=== PATIENT | male | born 1970 | race Caucasian/White ===

== ENCOUNTER 2017-08-25 19:46 | Inpatient (IN) | payer MEDICARE ==
[~2017-08-25] VITALS: Ht 167.6 cm; Wt 109.3 kg
[2017-08-25] MEDS ORDERED: SIMVASTATIN20 MG PO (19:57)
[2017-08-25] MEDS ORDERED: DEPAKOTE125 MG (19:57)
[2017-08-25] MEDS ORDERED: ENALAPRIL MALEA20 MG PO (19:57)
[2017-08-25] MEDS ORDERED: SEROQUEL25 MG PO (19:57)
[2017-08-25] MEDS ORDERED: SODIUM CHLORIDE 0.9% 1000ML 1,000 ML ONE ×2 (20:00→21:30)
[2017-08-25] MEDS ORDERED: MORPHINE SULFATE INJ 4 MG/ML INJ IV ONE (21:30)
[2017-08-25] MEDS ORDERED: PROMETHAZINE HCL (IM) 25 MG/ML VIAL IM ONE (21:30)
[2017-08-25] MEDS ORDERED: PIPERACILLIN/TAZOBAC 3.375 GM VIAL IV ONE (21:30)
[2017-08-25] MEDS ORDERED: SODIUM CHLORIDE 0.9% 1000ML 1,000 ML IV SCH (21:41)
[2017-08-25] MEDS ORDERED: ONDANSETRON HCL INJ 2 MG/ML VIAL IV PRN ×2 (21:45→22:30)
[2017-08-25] MEDS ORDERED: MORPHINE SULFATE 2 MG/ML SYR IV PRN (21:45)
[2017-08-25] MEDS ORDERED: PIPER-TAZ 3.375 GM / NS 50ML IV SCH ×2 (22:00→22:30)
[2017-08-25 22:38] VITALS: BP 144/86
--- OUTSIDE RECORDS SUMMARY | 2017-08-25 22:40 | XMS REPORT | Continuity of Care Document ---
Author Author [facility] Organization [facility] Address [address] [place] [address] Phone Unavailable Care Team Providers Care Plate Gauger Name Role Phone NONSTAFF PCP Unavailable Insurance Providers Guarantor Gianna Barnhart Address [address] [place] [address] Email [email or web address] Payer Medicare A & B Policy Number [id number] Subscriber's Name Gianna Barnhart Relationship 18 Self / Same As Patient Advance Directives Directive Response Recorded Date/Time Does the patient have an advance directive? No 08/25/17 8:03pm If yes, is advance directive on file with [facility]? No 08/25/17 8:06pm If not on file with [facility] will patient provide a copy? No 08/25/17 8:04pm Do you have a Directive to Physician? No 08/25/17 8:04pm Do you have a Medical Power of Sales Order Specialist? No 08/25/17 8:04pm Do you have an out of hospital Do Not Resuscitate Order? No 08/25/17 8:04pm Do you have any special needs we should be aware of? No 08/25/17 8:04pm Do you have a support person here with you today? No 08/25/17 8:04pm Did patient receive Notice of Privacy Practices? Yes 08/25/17 8:04pm Did patient receive patient rights and responsibilities? Yes 08/25/17 8:04pm Problems Medical Problem Onset Date Status Appendicitis Unknown Medications Current Home Medications Medication Dose Units Route Directions Days Qty Instructions Start Date Divalproex Sodium (Depakote) 125 Mg Tablet. Enalapril Maleate 20 Mg Tablet Quetiapine Fumarate (Seroquel) 25 Mg Tablet 25 Mg Oral Twice A Day 60 Tab Simvastatin 20 Mg Tablet 20 Mg Oral Today At 9:00PM Social History Smoking Status Start Date Stop Date Current every day smoker Hospital Discharge Instructions No hospital discharge instruction information available. Plan of Care Discharge Date 08/25/17 10:27pm Disposition ADMITTED Condition at Discharge Stable Forms Provided Work/School Excuse Prescriptions See Medication Section Functional Status No functional status information available. Allergies, Adverse Reactions, Alerts No known allergies. Immunizations No immunization information available. Vital Signs Acute Vital Signs Vital Response Date/Time Pulse Pulse Rate (adult) 105 bpm (60 - 90) 08/25/2017 10:21pm Respiratory Rate 16 bpm (12 - 24) 08/25/2017 10:21pm Blood Pressure 153/89 mm Hg 08/25/2017 10:21pm Height 5 ft 6 in 08/25/2017 7:46pm Weight 240 lb 08/25/2017 7:46pm Body Mass Index 38.7 kg/m^2 08/25/2017 7:46pm Results No relevant diagnostic test, laboratory data and/or discharge summary information available. Procedures No procedure information available. Encounters Encounter Location Arrival/Admit Date Discharge/Depart Date Attending Provider Departed Emergency Room [facility] 08/25/17 7:46pm 10:27pm DIVINE OSORIO MD
[2017-08-25] MEDS ORDERED: QUETIAPINE FUM100 MG PO (23:25)
[2017-08-25] MEDS ORDERED: DEPAKOTE ER500 MG PO ×2 (23:25)
[2017-08-25] MEDS ORDERED: QUETIAPINE FUM300 MG PO (23:25)
[2017-08-25] MEDS ORDERED: TRAZODONE HCL50 MG PO (23:25)
[2017-08-25] MEDS ORDERED: ENALAPRIL MALEATE 10 MG TAB PO SCH (23:30)
[2017-08-25] MEDS ORDERED: TRAZODONE HCL 50 MG TAB PO PRN (23:30)
[2017-08-26] VITALS (8 sets, daily range): BP systolic 105–144; BP diastolic 51–86
[2017-08-26] MEDS: SODIUM CHLORIDE 0.9% 1000ML 1,000 ML IV SCH ×4 (00:07→22:30)
[2017-08-26] MEDS: QUETIAPINE FUMARATE 100 MG TAB PO SCH ×3 (00:20→20:50)
[2017-08-26] MEDS: DEPAKOTE ER 500MG TAB(ONCE DAILY) PO SCH ×3 (00:20→20:50)
[2017-08-26] MEDS: MORPHINE SULFATE 2 MG/ML SYR IV PRN ×3 (04:12→19:20)
[2017-08-26] MEDS: PIPER-TAZ 3.375 GM 50 ML IV SCH ×3 (05:23→21:29)
[2017-08-26 07:01] LABS: HEMATOCRIT 37.6 % (38.2-49.6); HEMOGLOBIN 12.7 g/dL (14.0-18.0); MEAN CORPUSCULAR HEMOGLOBIN 31.6 pg (28-32); MEAN CORPUSCULAR HGB CONC 33.8 g/dL (31-35); MEAN CORPUSCULAR VOLUME 93.5 fL (81-99); PLATELET COUNT 115 x10e3/uL (140-360); RED BLOOD COUNT 4.02 x10e6/uL (4.3-5.7); RED CELL DISTRIBUTION WIDTH 12.9 % (11.7-14.4)
[2017-08-26 07:25] LABS: ALBUMIN 2.6 g/dL (3.5-5.0); ALBUMIN/GLOBULIN RATIO 0.9 (0.8-2.0); ANION GAP 13.7 mmol/L (8-16); CALCIUM 8.3 mg/dL (8.4-10.2); CREATININE, SERUM 1.39 mg/dL (0.72-1.25); POTASSIUM 4.7 mmol/L (3.5-5.1)
[2017-08-26] MEDS ORDERED: SIMVASTATIN 20 MG TAB PO SCH (09:00)
[2017-08-26] MEDS: ENALAPRIL MALEATE 10 MG TAB PO SCH ×2 (09:00→21:00)
[2017-08-26] MEDS ORDERED: BUPIVACAINE 0.25% 30ML SDV INJ ONE (11:46)
[2017-08-26] MEDS ORDERED: FENTANYL CITRATE/PF 100MCG/2 ML INJ ONE ×2 (14:26→18:24)
[2017-08-26] MEDS ORDERED: DEXAMETHASONE SOD PHOS INJ 4 MG/ML VIAL ONE (17:56)
[2017-08-26] MEDS ORDERED: PROPOFOL IV EMULSION 10 MG/ML 20 ML VIAL ONE (17:56)
[2017-08-26] MEDS ORDERED: ONDANSETRON HCL INJ 2 MG/ML VIAL ONE (17:56)
[2017-08-26] MEDS ORDERED: SEVOFLURANE INHAL SOLN 250 ML PEN BTL ONE (17:56)
[2017-08-26] MEDS ORDERED: LIDOCAINE HCL 2% LOCAL INJ 5 ML SDV VIAL INJ ONE (17:56)
[2017-08-26] MEDS ORDERED: GLYCOPYRROLATE INJ 1MG/ 5 ML SYR ONE (17:56)
[2017-08-26] MEDS ORDERED: NEOSTIGMINE 5 MG/5ML SYR ONE (17:56)
[2017-08-26] MEDS ORDERED: ROCURONIUM BROMIDE 10 MG/ML 5ML VIAL ONE (17:56)
[2017-08-26] MEDS ORDERED: MIDAZOLAM HCL 2 MG/2 ML VIAL ONE (18:24)
[2017-08-26] MEDS: SIMVASTATIN 40 MG TAB PO SCH (20:50)
[2017-08-27 00:39] VITALS: BP 122/72
[2017-08-27] MEDS: SODIUM CHLORIDE 0.9% 1000ML 1,000 ML IV SCH ×2 (04:24→15:57)
[2017-08-27] MEDS: MORPHINE SULFATE 2 MG/ML SYR IV PRN (04:44)
[2017-08-27] MEDS: PIPER-TAZ 3.375 GM 50 ML IV SCH ×3 (05:26→22:00)
[2017-08-27 07:29] LABS: BASOPHILS % 0.3 % (0.0-1.0); EOSINOPHILS % 0.1 % (0.0-6.0); HEMATOCRIT 35.2 % (38.2-49.6); HEMOGLOBIN 11.8 g/dL (14.0-18.0); LYMPHOCYTES # (AUTO) 1.2 (1.0-3.2); LYMPHOCYTES % 12.9 % (18.0-39.1); MEAN CORPUSCULAR HEMOGLOBIN 31.3 pg (28-32); MEAN CORPUSCULAR HGB CONC 33.5 g/dL (31-35); MEAN CORPUSCULAR VOLUME 93.4 fL (81-99); MONOCYTES % 11.3 % (4.4-11.3); NEUTROPHILS # (AUTO) 6.9 (2.1-6.9); NEUTROPHILS % 74.7 % (38.7-80.0); PLATELET COUNT 129 x10e3/uL (140-360); RED BLOOD COUNT 3.77 x10e6/uL (4.3-5.7); RED CELL DISTRIBUTION WIDTH 12.8 % (11.7-14.4)
[2017-08-27 07:41] LABS: ANION GAP 13.4 mmol/L (8-16); CALCIUM 8.5 mg/dL (8.4-10.2); CREATININE, SERUM 1.44 mg/dL (0.72-1.25); POTASSIUM 4.4 mmol/L (3.5-5.1)
[2017-08-27 08:00] VITALS: BP 125/78
[2017-08-27] MEDS: DEPAKOTE ER 500MG TAB(ONCE DAILY) PO SCH ×2 (09:40→21:00)
[2017-08-27] MEDS: HYDROCODONE/APAP 7.5MG-325MG 1 EA TAB PO PRN ×3 (09:40→21:09)
[2017-08-27] MEDS: QUETIAPINE FUMARATE 100 MG TAB PO SCH ×2 (09:40→21:00)
[2017-08-27] MEDS: ENALAPRIL MALEATE 10 MG TAB PO SCH ×2 (09:40→21:00)
[2017-08-27 09:51] VITALS: BP 125/78
[2017-08-27 12:00] VITALS: BP 105/59
[2017-08-27 20:00] VITALS: BP 121/66
[2017-08-27] MEDS: SIMVASTATIN 40 MG TAB PO SCH (21:00)
[2017-08-28] VITALS: BP 123/63
[2017-08-28 04:00] VITALS: BP 128/72
[2017-08-28] MEDS: HYDROCODONE/APAP 7.5MG-325MG 1 EA TAB PO PRN ×2 (04:54→13:13)
[2017-08-28] MEDS: PIPER-TAZ 3.375 GM 50 ML IV SCH ×2 (06:00→13:13)
[2017-08-28 07:57] VITALS: BP 119/65
[2017-08-28 09:55] VITALS: BP 119/65
[2017-08-28] MEDS: ENALAPRIL MALEATE 10 MG TAB PO SCH (09:55)
[2017-08-28] MEDS: QUETIAPINE FUMARATE 100 MG TAB PO SCH (09:55)
[2017-08-28] MEDS: DEPAKOTE ER 500MG TAB(ONCE DAILY) PO SCH (09:55)
[2017-08-28 12:00] VITALS: BP 120/82
[2017-08-28] MEDS: SODIUM CHLORIDE 0.9% 1000ML 1,000 ML IV SCH (15:18)
[2017-08-28 16:07] VITALS: BP 138/71
--- NOTE | 2017-10-27 12:36 | History and Physical ---
ADMITTING DIAGNOSIS: Appendicitis. HISTORY OF PRESENT ILLNESS: This 47-year-old male was admitted to the hospital with a 1-day history of abdominal pain. It had become progressively worse and was localized now to the right lower quadrant. It was associated with some nausea and no vomiting. The patient came to the emergency room, and a CAT scan that was done was consistent with appendicitis. We were thus asked to see the patient for surgical intervention. PAST MEDICAL HISTORY: Remarkable for hypertension and bipolar disease. ALLERGIES: NONE. REVIEW OF SYSTEMS: Otherwise unremarkable. MEDICATIONS: Please refer to MAR. PHYSICAL EXAMINATION GENERAL: Examination at the time that we saw the patient revealed a male lying in bed in some mild distress. VITAL SIGNS: He was afebrile. His vital signs were stable. HEAD, EYES, EARS, NOSE AND THROAT: No acute inflammation. NECK: No nodes, masses or bruits. LUNGS: Clear to auscultation. HEART: Regular rate and rhythm. ABDOMEN: Soft, nontender, no masses, except in the area of the right lower quadrant there was some guarding present and some rebound. EXTREMITIES: Good pulses bilaterally. ASSESSMENT: Acute appendicitis. PLAN: IV hydration, antibiotics and appendectomy. Job#: [id number]
--- NOTE | 2017-10-27 12:47 | Operative Report ---
DATE OF PROCEDURE: August 26, 2017 PREOPERATIVE DIAGNOSIS: Acute appendicitis. POSTOPERATIVE DIAGNOSIS: Acute appendicitis. OPERATION PERFORMED: Laparoscopic appendectomy. ANESTHESIA: General. COMPLICATIONS: None. ESTIMATED BLOOD LOSS: Minimal. DESCRIPTION OF PROCEDURE: With the patient lying in bed in the supine position, under good general endotracheal anesthesia, the abdomen was prepped with Betadine solution and draped in the usual manner. A Veress needle was introduced into the umbilicus, and pneumoperitoneum was established without any difficulty. A 12-mm trocar was placed into the umbilicus, and a 10-mm video laparoscope was placed into the intraabdominal cavity. Under direct vision, 2 more 5-mm trocars were placed in the lower abdomen. Video laparoscopy at this point revealed an acutely inflamed appendix. There was no sign of gross perforation. The base of the appendix was then dissected from the cecum and divided with an application of the Endo REESE stapler. The mesentery of the appendix was similarly divided with the Endo REESE vascular stapler. The appendix was placed in a pouch and removed through the umbilicus without any difficulty. Video laparoscopy was then again carried out. All the suture lines were found to perfectly dry. The whole area was thoroughly irrigated, and all the excess fluid was aspirated. The pneumoperitoneum was evacuated, and all the trocars were removed under direct vision. The midline fascia at the umbilicus was then closed with a [id number] of #0 Vicryl. All layers were infiltrated on the way out with a solution of 1/4 percent Marcaine. Subcutaneous tissue was approximated with 3-0 Vicryl, and the puncture wounds were closed with subcuticular 5-0 Vicryl. Benzoin, Steri-Strips and Band-Aids were applied. The sponge, lap and needle count was correct. Patient tolerated the procedure well and returned to the recovery room in stable condition. Job#: [id number]
--- NOTE | 2017-10-27 14:06 | Discharge Summary ---
ADMITTING DIAGNOSIS: Appendicitis. DISCHARGE DIAGNOSIS: Appendicitis. OPERATION PERFORMED: Laparoscopic appendectomy. COMPLICATIONS: None. HISTORY OF PRESENT ILLNESS: This 47-year-old male was admitted to the hospital after presenting to the emergency room with a 1-day history of abdominal pain that had become localized to the right lower quadrant. Physical examination at time of admission showed him to have some right lower quadrant guarding and localized rebound. The CT scan of the abdomen showed him to have an acutely inflamed appendix. His white blood count was elevated. Patient was taken to surgery on August 26, 2017, where he underwent an uneventful laparoscopic appendectomy. Postoperatively, the patient did well. He remained afebrile. His vital signs were stable. He was started on a clear liquid diet, which was advanced and he tolerated it well. Finally, on August 28, 2017, with the patient being afebrile, his vital signs being stable, his wounds healing nicely, he was discharged to home to be followed at the office at a later date. EVAN FIGUEREDO MD Job#: [id number] NM
== END 2017-08-28 18:03 | disposition home or self-care (01) | DRG 343 ==
LOC: FSED 19:46 → MED/SURG 22:38
PROVIDERS: ADMIT Surgery; ATTEND Surgery
PROC: 0DTJ4ZZ Resection of Appendix, Percutaneous Endoscopic Approach (ICD-10-PCS; principal; 2017-08-26 12:30)
DX: K35.80 Unspecified acute appendicitis (principal); I10 Essential (primary) hypertension; F31.9 Bipolar disorder, unspecified; Z28.21 Immunization not carried out because of patient refusal
CPT/HCPCS: 36415; 74177; 80048; 80053; 82948; 85007; 85025; 85027; 88304; 96360; 96374; 99284; J1100; J2001; J2250; J2270; J2405; J2543; J2550; J7030

== ENCOUNTER 2018-10-06 19:34 | Emergency (ER) | payer MEDICARE ==
[~2018-10-06] VITALS: Ht 167.6 cm; Wt 121.6 kg
[~2018-10-06 19:34] MED LIST: DEPAKOTE ER500 MG PO; DEPAKOTE125 MG; ENALAPRIL MALEA20 MG PO; QUETIAPINE FUM100 MG PO; QUETIAPINE FUM300 MG PO; SEROQUEL25 MG PO; SIMVASTATIN20 MG PO; TRAZODONE HCL50 MG PO
--- OUTSIDE RECORDS SUMMARY | 2018-10-06 19:37 | XMS REPORT | Continuity of Care Document ---
Author Author [facility] Interface Address Unknown Phone Unavailable Problems Problem Status Onset Date Classification Date Reported Comments Source Appendicitis Active Problem 08/26/2017 [facility] Medications Medication Details Route Status Patient Instructions Ordering Provider Order Date Source Divalproex Sodium (Depakote) 125 Mg Tablet. Active [facility] Enalapril Maleate 20 Mg Tablet Active [facility] Quetiapine Fumarate (Seroquel) 25 Mg Tablet Twice A Day [facility] Simvastatin 20 Mg Tablet Today At 9:00PM [facility] Allergies, Adverse Reactions, Alerts Substance Category Reaction Severity Reaction type Status Date Reported Comments Source Immunizations Immunization Date Given Site Status Last Updated Comments Source Results Order Name Results Value Reference Range Date Interpretation Comments Source Vital Signs Vital Sign Value Date Comments Source Encounters Location Location Details Encounter Type Encounter Number Reason For Visit Attending Provider ADM Date DC Date Status Source Departed Emergency Room [id number] DIVINE OSORIO MD 08/25/2017 08/25/2017 [facility] Procedures Procedure Code Date Perfomer Comments Source
--- NOTE | 2018-10-06 20:54 | Diagnostic Imaging Report ---
CT BRAIN [facility] HISTORY: Dizziness, weakness, blurred vision COMPARISON: None. TECHNIQUE: Noncontrast axial scans were obtained from skull base to the vertex. Coronal and sagittal reconstructions obtained from the axial data. One or more of the following dose reduction techniques were used: Automated exposure control, adjustment of the mA and/or kV according to patient size, and/or utilization of iterative reconstruction technique. DISCUSSION: Scalp/Skull: Unremarkable. Brain sulci: Mildly prominent. Ventricles: Mild compensatory dilatation. Extra-axial spaces: No masses or fluid collections. Mild carotid siphon calcifications are present. Parenchyma: No abnormal densities. No mass, hemorrhage, or large vascular territory acute infarct. Dural sinuses: No abnormal densities. Sellar/Suprasellar region: Intact. Skull base: Intact. Incidental findings: None. IMPRESSION: 1. No acute intracranial abnormalities. 2. Mild generalized cerebral volume loss. Signed by: Dr. Shaji Baxter M.D. on 10/06/2018 8:51 PM
[2018-10-06] MEDS ORDERED: SOD POLYSTYRENE SULFONATE SUSP 15 GM/60 ML BTL PO STA (21:09)
== END 2018-10-06 21:45 | disposition home or self-care (01) ==
LOC: FSED 19:34
DX: R42 Dizziness and giddiness (principal); E87.5 Hyperkalemia; N18.9 Chronic kidney disease, unspecified; I12.9 Hypertensive chronic kidney disease with stage 1 through stage 4 chronic kidney disease, or unspecified chronic kidney disease; R53.1 Weakness; F31.9 Bipolar disorder, unspecified; F17.210 Nicotine dependence, cigarettes, uncomplicated
CPT/HCPCS: 70450; 93005; 99283

== ENCOUNTER 2020-10-12 17:20 | Emergency (ER) | payer MEDICARE ==
[~2020-10-12] VITALS: Ht 167.6 cm; Wt 121.6 kg
[2020-10-12] MEDS ORDERED: CEFAZOLIN SOD 1 GM VIAL IM SCH (19:45)
[2020-10-12] MEDS ORDERED: CEPHALEXIN500 MG PO (20:12)
[2020-10-12] MEDS ORDERED: TYLENOL # 31 EA PO (20:13)
== END 2020-10-12 20:50 | disposition home or self-care (01) ==
LOC: FSED 18:20
DX: L03.113 Cellulitis of right upper limb (principal); T22.211A Burn of second degree of right forearm, initial encounter; X15.8XXA Contact with other hot household appliances, initial encounter; Y93.G3 Activity, cooking and baking; Y92.007 Garden or yard of unspecified non-institutional (private) residence as the place of occurrence of the external cause; I10 Essential (primary) hypertension; E78.5 Hyperlipidemia, unspecified; F31.9 Bipolar disorder, unspecified
CPT/HCPCS: 99283

== ENCOUNTER 2022-08-13 19:14 | Inpatient (IN) | payer MEDICARE ==
[~2022-08-13] VITALS: Ht 167.6 cm; Wt 97.1 kg
[~2022-08-13 19:14] MED LIST changes: +CEPHALEXIN500 MG PO; +SPS15 GM/60 M PO; +TYLENOL # 31 EA PO
[2022-08-13] MEDS ORDERED: DEXTROSE 50% SYRINGE 50 ML IV STA (20:57)
[2022-08-13] MEDS ORDERED: INSULIN REGULAR, HUMAN 100 UNIT/1 ML IV ONE (21:00)
[2022-08-13] MEDS ORDERED: ONDANSETRON HCL INJ 2MG/ML 2ML 2 MG/ML VIAL IV STA (21:01)
[2022-08-13] MEDS ORDERED: ONDANSETRON HCL INJ 2MG/ML 2ML 2 MG/ML VIAL IV PRN (21:15)
[2022-08-13] MEDS ORDERED: SODIUM CHLORIDE FLUSH 10 ML SYR INJ PRN (21:15)
[2022-08-13] MEDS ORDERED: SODIUM CHLORIDE 0.9% 1000ML 1,000 ML IV SCH (21:15)
[2022-08-13] MEDS ORDERED: ONDANSETRON HCL INJ 2MG/ML 2ML 2 MG/ML VIAL ONE (21:22)
[2022-08-13] MEDS ORDERED: DEXTROSE 50% SYRINGE 50 ML IV ONE (21:22)
[2022-08-13] MEDS ORDERED: SODIUM CHLORIDE 0.9% 1000ML 1,000 ML ONE (21:22)
[2022-08-13] MEDS ORDERED: INSULIN REGULAR, HUMAN 100 UNIT/1 ML ONE (21:22)
[2022-08-13 22:48] VITALS: BP 124/67
[2022-08-13 23:00] VITALS: BP 124/67
[2022-08-13] MEDS ORDERED: DIVALPROEX SODIUM 125 MG TABDR...ER PO SCH (23:00)
[2022-08-13 23:48] VITALS: BP 124/67
[2022-08-13] MEDS ORDERED: HYDROXYZINE HCL10 MG PO (23:48)
[2022-08-14] MEDS ORDERED: ACETAMINOPHEN 325 MG TAB PO PRN (00:45)
[2022-08-14] MEDS: HYDROXYZINE HCL 10 MG TAB PO SCH ×4 (01:04→23:43)
[2022-08-14] MEDS: SODIUM CHLORIDE 0.9% 1000ML 1,000 ML IV SCH ×3 (01:04→16:06)
[2022-08-14] MEDS: QUETIAPINE FUMARATE 100 MG TAB PO SCH ×2 (01:05→23:44)
[2022-08-14] MEDS: HYDROCODONE/APAP 5MG-325MG TAB PO PRN ×2 (01:13→23:44)
[2022-08-14 02:02] LABS: ANION GAP 12.8 mmol/L (8-16); BLOOD UREA NITROGEN 41 mg/dL (7-26); BUN/CREATININE RATIO 20 (6-25); CALCIUM 8.6 mg/dL (8.4-10.2); CARBON DIOXIDE 14 mmol/L (22-29); CHLORIDE 118 mmol/L (98-107); CREATININE, SERUM 2.08 mg/dL (0.72-1.25); GLUCOSE 86 mg/dL (74-118); LIPASE 313 U/L (8-78); SODIUM 139 mmol/L (136-145)
[2022-08-14 02:06] LABS: POTASSIUM 5.8 mmol/L (3.5-5.1)
[2022-08-14 04:00] VITALS: BP 99/74
[2022-08-14 08:04] LABS: BASOPHILS # (AUTO) 0.1 (0.0-0.1); BASOPHILS % 0.9 % (0.0-1.0); EOSINOPHILS # (AUTO) 0.2 (0.0-0.4); EOSINOPHILS % 2.1 % (0.0-6.0); HEMATOCRIT 40.6 % (38.2-49.6); HEMOGLOBIN 12.6 g/dL (14.0-18.0); LYMPHOCYTES # (AUTO) 2.1 (1.0-3.2); MEAN CORPUSCULAR HEMOGLOBIN 31.2 pg (28-32); MEAN CORPUSCULAR VOLUME 100.5 fL (81-99); MONOCYTES # (AUTO) 0.7 (0.2-0.8); MONOCYTES % 10.1 % (4.4-11.3); NEUTROPHILS % 56.6 % (38.7-80.0); PLATELET COUNT 134 x10e3/uL (140-360); RED BLOOD COUNT 4.04 x10e6/uL (4.3-5.7); RED CELL DISTRIBUTION WIDTH 13.2 % (11.7-14.4)
[2022-08-14 08:27] LABS: ALBUMIN 2.9 g/dL (3.5-5.0); ANION GAP 10.9 mmol/L (8-16); CALCIUM 8.5 mg/dL (8.4-10.2); CREATININE, SERUM 2.2 mg/dL (0.72-1.25); MAGNESIUM 1.5 MG/DL (1.3-2.1); PHOSPHORUS 3.3 MG/DL (2.3-4.7); POTASSIUM 5.9 mmol/L (3.5-5.1)
[2022-08-14 08:43] VITALS: BP 108/71
[2022-08-14] MEDS ORDERED: HYDROXYZINE HCL 10 MG TAB PO SCH (09:00)
[2022-08-14] MEDS ORDERED: QUETIAPINE FUMARATE 100 MG TAB PO SCH ×2 (09:00→21:00)
[2022-08-14] MEDS ORDERED: DIVALPROEX SODIUM 125 MG TABDR...ER PO SCH (09:00)
[2022-08-14 09:41] VITALS: BP 108/71
[2022-08-14] MEDS ORDERED: SOD POLYSTYRENE SULFONATE SUSP 15 GM/60 ML BTL PO ONE ×2 (10:30→12:00)
[2022-08-14 11:40] VITALS: BP 114/76
[2022-08-14] MEDS ORDERED: LACTULOSE SYRUP 20 GM/30 ML UDC PO ONE (12:30)
[2022-08-14 15:40] VITALS: BP 122/77
[2022-08-14 16:05] LABS: CALCIUM 8.3 mg/dL (8.4-10.2); CREATININE, SERUM 2.14 mg/dL (0.72-1.25)
[2022-08-14] MEDS ORDERED: DEXTROSE 50% SYRINGE 50 ML IV ONE (16:45)
[2022-08-14] MEDS ORDERED: INSULIN REGULAR, HUMAN 100 UNIT/1 ML IV ONE (16:45)
[2022-08-14 18:54] LABS: ANION GAP 9.9 mmol/L (8-16); CALCIUM 8.1 mg/dL (8.4-10.2); CREATININE, SERUM 2.09 mg/dL (0.72-1.25); POTASSIUM 4.9 mmol/L (3.5-5.1)
[2022-08-14 20:00] VITALS: BP 132/83
[2022-08-14] MEDS ORDERED: DEPAKOTE DELAYED-RELEASE TAB 500 MG PO SCH (21:00)
[2022-08-14] MEDS ORDERED: DIVALPROEX SODIUM 250 MG TAB...DR PO SCH (21:00)
[2022-08-14] MEDS ORDERED: ATORVASTATIN 40 MG TAB PO SCH (21:00)
[2022-08-15] VITALS: BP 130/77
[2022-08-15 04:00] VITALS: BP 118/78
[2022-08-15] MEDS: SODIUM CHLORIDE 0.9% 1000ML 1,000 ML IV SCH (06:11)
[2022-08-15 07:27] LABS: BASOPHILS % 0.8 % (0.0-1.0); EOSINOPHILS # (AUTO) 0.2 (0.0-0.4); EOSINOPHILS % 2.9 % (0.0-6.0); HEMATOCRIT 36.2 % (38.2-49.6); HEMOGLOBIN 11.2 g/dL (14.0-18.0); LYMPHOCYTES # (AUTO) 1.6 (1.0-3.2); LYMPHOCYTES % 30.7 % (18.0-39.1); MEAN CORPUSCULAR HEMOGLOBIN 31.5 pg (28-32); MEAN CORPUSCULAR HGB CONC 30.9 g/dL (31-35); MONOCYTES # (AUTO) 0.6 (0.2-0.8); MONOCYTES % 10.7 % (4.4-11.3); NEUTROPHILS # (AUTO) 2.8 (2.1-6.9); NEUTROPHILS % 54.5 % (38.7-80.0); PLATELET COUNT 113 x10e3/uL (140-360); RED BLOOD COUNT 3.55 x10e6/uL (4.3-5.7)
[2022-08-15 07:53] LABS: ALBUMIN 2.6 g/dL (3.5-5.0); ANION GAP 9.1 mmol/L (8-16); CALCIUM 8.3 mg/dL (8.4-10.2); CREATININE, SERUM 1.97 mg/dL (0.72-1.25); MAGNESIUM 1.2 MG/DL (1.3-2.1); PHOSPHORUS 3.1 MG/DL (2.3-4.7); POTASSIUM 5.1 mmol/L (3.5-5.1)
[2022-08-15 08:00] VITALS: BP 118/78
[2022-08-15 08:40] VITALS: BP 145/87
[2022-08-15] MEDS ORDERED: DEPAKOTE DELAYED-RELEASE TAB 500 MG PO SCH (09:00)
[2022-08-15] MEDS ORDERED: QUETIAPINE FUMARATE 100 MG TAB PO SCH (09:00)
[2022-08-15] MEDS: HYDROXYZINE HCL 10 MG TAB PO SCH ×2 (09:14→14:59)
[2022-08-15] MEDS ORDERED: SOD POLYSTYRENE SULFONATE SUSP 15 GM/60 ML BTL PO NR (10:00)
[2022-08-15] MEDS ORDERED: AMLODIPINE BESYLATE 5 MG TAB PO SCH (10:30)
[2022-08-15 12:04] VITALS: BP 124/83
[2022-08-15 14:14] LABS: ANION GAP 6.2 mmol/L (8-16); CALCIUM 7.8 mg/dL (8.4-10.2); CREATININE, SERUM 1.82 mg/dL (0.72-1.25); POTASSIUM 5.2 mmol/L (3.5-5.1)
[2022-08-15] MEDS ORDERED: SOD POLYSTYRENE SULFONATE SUSP 15 GM/60 ML BTL PO ONE (14:45)
[2022-08-15 16:19] VITALS: BP 115/86
[2022-08-15] MEDS ORDERED: SODIUM BICARBONATE 650 MG TAB PO SCH (17:00)
[2022-08-15] MEDS ORDERED: SODIUM BICARBO650 MG PO (17:38)
[2022-08-15] MEDS ORDERED: AMLODIPINE BESY10 MG PO (17:38)
== END 2022-08-15 18:44 | disposition home or self-care (01) | DRG 641 ==
LOC: FSED 19:20 → ERHOLD 21:15 → MED/SURG 22:15 → OBSVTOIN 08-14 09:17
PROVIDERS: ADMIT Internal Medicine; ATTEND Internal Medicine
DX: E87.5 Hyperkalemia (principal); N17.9 Acute kidney failure, unspecified; R11.2 Nausea with vomiting, unspecified; I12.9 Hypertensive chronic kidney disease with stage 1 through stage 4 chronic kidney disease, or unspecified chronic kidney disease; G89.29 Other chronic pain; K08.89 Other specified disorders of teeth and supporting structures; N18.32 Chronic kidney disease, stage 3b; F17.200 Nicotine dependence, unspecified, uncomplicated; E87.20 Acidosis, unspecified; F31.9 Bipolar disorder, unspecified; M19.90 Unspecified osteoarthritis, unspecified site; N25.89 Other disorders resulting from impaired renal tubular function; E78.5 Hyperlipidemia, unspecified; F41.9 Anxiety disorder, unspecified; Z79.899 Other long term (current) drug therapy; Z90.49 Acquired absence of other specified parts of digestive tract; Z98.890 Other specified postprocedural states; Z88.0 Allergy status to penicillin
CPT/HCPCS: 36415; 74018; 80048; 80053; 80320; 81003; 82948; 83690; 83735; 84100; 85025; 93005; 99284; G0378; J1817; J2405; J3410; J7030; J7799